=== PATIENT | female | born 1990 | race Caucasian/White ===

== ENCOUNTER 2023-01-24 05:44 | Inpatient (IN) | payer OTHER, MEDICAID ==
[2023-01-24] MEDS ORDERED: Oxytocin/Lactated Ringers 30 UNIT/500 ML BAG IV SCH (06:00)
[2023-01-24 06:14] LABS: BASOPHILS PERCENT AUTO 0.2 % (0.0-1.0); EOSINOPHILS ABSOLUTE AUTO 0.1 K/mm3 (0.0-0.4); EOSINOPHILS PERCENT AUTO 1.1 % (0.0-6.0); HEMATOCRIT 37.6 % (37.0-47.0); HEMOGLOBIN 12.7 gm/dl (12.0-16.0); IMMATURE GRAN PERCENT AUTO 0.8 % (0.0-0.4); LYMPHOCYTES ABSOLUTE AUTO 1.8 K/mm3 (1.0-4.8); MEAN CORPUSCULAR HGB CONC 33.8 g/dl (32.0-36.0); MEAN CORPUSCULAR VOLUME 88.9 fl (83.0-99.0); MEAN PLATELET VOLUME 9.6 fl (9.4-12.3); MONOCYTES ABSOLUTE AUTO 1.2 K/mm3 (0.0-0.8); NEUTROPHILS ABSOLUTE AUTO 9.5 K/mm3 (1.8-7.7); NEUTROPHILS PERCENT AUTO 74.9 % (41.0-71.0); PLATELET COUNT,PLT 241 K/mm3 (150-400); RED BLOOD CELL COUNT 4.23 M/mm3 (4.10-5.30); WHITE BLOOD CELL COUNT,WBC 12.73 K/mm3 (3.9-11.3)
[2023-01-24] MEDS: Lactated Ringers 1,000 ML IV SCH ×3 (06:42→07:35)
[2023-01-24] MEDS ORDERED: Citric Acid/Sodium Citrate Solution 30 ML Cup PO ONE (07:00)
[2023-01-24] MEDS ORDERED: Metoclopramide 10 MG/2 ML SDV IVPUSH ONE (07:00)
[2023-01-24] MEDS ORDERED: Clindamycin Phosphate in D5W 900 MG in Premix Bag 1 BAG IV ONE ×2 (07:00)
[2023-01-24] MEDS ORDERED: ceFAZolin 2 GM Vial ONE (07:03)
[2023-01-24] MEDS ORDERED: Oxytocin 10 Units/1 ML SDV ONE ×2 (07:03→08:25)
[2023-01-24] MEDS ORDERED: fentaNYL 100 MCG/2 ML SDV ONE (07:03)
[2023-01-24] MEDS ORDERED: Morphine PF 10 MG/10 ML SDV ONE (07:03)
[2023-01-24] MEDS ORDERED: Ondansetron 4 MG/2 ML SDV ONE (07:56)
[2023-01-24] MEDS ORDERED: Ondansetron 4 MG/2 ML SDV IVPUSH PRN (08:10)
[2023-01-24] MEDS ORDERED: fentaNYL 100 MCG/2 ML SDV IVPUSH PRN (08:10)
[2023-01-24] MEDS ORDERED: diphenhydrAMINE 50 MG/ML SDV IVPUSH PRN ×2 (08:10→10:24)
[2023-01-24] MEDS ORDERED: Lactated Ringers 1,000 ML ONE (08:36)
[2023-01-24] MEDS ORDERED: Ketorolac 30 MG/ML SDV ONE (08:41)
[2023-01-24] MEDS ORDERED: Dextrose 5%-Lactated Ringers 1,000 ML IV SCH ×2 (10:24→17:15)
[2023-01-24] MEDS ORDERED: ePHEDrine 50 MG/ML SDV IVPUSH PRN (10:24)
[2023-01-24] MEDS ORDERED: Ondansetron 4 MG/2 ML SDV IV PRN (10:24)
[2023-01-24] MEDS ORDERED: Docusate Sodium 100 MG Cap PO PRN (10:24)
[2023-01-24] MEDS ORDERED: Naloxone 0.4 MG/ML SDV IVPUSH PRN (10:24)
[2023-01-24] MEDS ORDERED: Acetaminophen/oxyCODONE 325-5 MG Tab PO PRN ×2 (10:24)
[2023-01-24] MEDS: Ketorolac 30 MG/ML SDV IVPUSH SCH ×2 (15:45→21:10)
[2023-01-24] MEDS ORDERED: Metoclopramide 10 MG/2 ML SDV IVPUSH PRN (17:04)
[2023-01-25] MEDS: Ketorolac 30 MG/ML SDV IVPUSH SCH (04:21)
[2023-01-25 05:45] LABS: MEAN CORPUSCULAR HEMOGLOBIN 30.1 pg (28.0-32.0); MEAN CORPUSCULAR HGB CONC 33.2 g/dl (32.0-36.0); MEAN CORPUSCULAR VOLUME 90.6 fl (83.0-99.0); MEAN PLATELET VOLUME 9.7 fl (9.4-12.3); PLATELET COUNT,PLT 220 K/mm3 (150-400); RED BLOOD CELL COUNT 3.42 M/mm3 (4.10-5.30); WHITE BLOOD CELL COUNT,WBC 12.33 K/mm3 (3.9-11.3)
[2023-01-25 05:58] LABS: HEMOGLOBIN 10.3 gm/dl (12.0-16.0)
[2023-01-25] MEDS ORDERED: Ibuprofen 600 MG Tab PO PRN (09:00)
== END 2023-01-25 12:10 | disposition home or self-care (01) | DRG 788 ==
LOC: JD.OB 05:44
PROVIDERS: ADMIT Obstetrics & Gynecology; ATTEND Obstetrics & Gynecology
PROC: 10D00Z1 Extraction of Products of Conception, Low, Open Approach (ICD-10-PCS; principal; 2023-01-24 08:00)
DX: O34.211 Maternal care for low transverse scar from previous cesarean delivery (principal); Z37.0 Single live birth; Z3A.37 37 weeks gestation of pregnancy; Z88.2 Allergy status to sulfonamides; Z88.0 Allergy status to penicillin
CPT/HCPCS: 36415; 59025; 85025; 85027; 86592; 86850; 86900; 86901; A9270-GY; J0690; J0736; J1200; J1580; J1885; J2274; J2405; J2590; J2765; J3010; J3490; J7120; J7121